=== PATIENT | male | born 1955 | race Caucasian/White ===

== ENCOUNTER → 2016-05-29 | Outpatient (CLI) | payer BC, OTHER ==
[~2016-05-29] VITALS: Ht 188 cm; Wt 102.5 kg
[~2016-05-29] MED LIST: AMITRIPTYLINE H10 M1 PO; ASPIR-LOW81 MG PO; GLUCOTROL5 MG PO; IMDUR 30 MG TAB30 M1 PO; METFORMIN HCL500 MG PO; NAPROSYN500 MG PO; NORCO 5-325 TA1 EACH PO; NORFLEX100 MG PO; OXYCODONE-ACET1 EAC2 PO; PLAVIX 75 MG TA75 M1 PO; SENOKOT-S1 TA1 PO
--- NOTE | ~2016-05-29 | HPC ---
[facility] [address] PAIN MANAGEMENT CONSULTATION Name: ALEIDA DANIELS Room #: REG [facility] Niecy#: [id number] Admission: 05/29/16 Attend Phys: Rose Blanca MD Discharge: Date of : 59 Report #: [id number] THIS REPORT FOR: //name// CC: Gaston Blanca DATE OF SERVICE: 05/29/2016 FOLLOWUP COMPLAINT: Here for the epidural steroid injection. FOLLOWUP HISTORY: The patient is a 61-year-old gentleman who has been seen in the pain clinic because of lumbar radiculopathy involving his right leg. The patient noted lifting a door at work. He noted a popping sensation and experienced pain and discomfort, which is radiated down into his right leg. His insurance company has precertified him for an injection. He has stopped his Plavix and has returned today for treatment. PHYSICAL EXAMINATION: Blood pressure is 98/49, pulse 74, respiratory rate 16, room air O2 saturation is 96%. The patient has not taken his Plavix for greater than 5 days. He continues to have pain and discomfort radiating down into the right leg. He did go to work today and is experiencing pain and discomfort. IMPRESSION: Lumbar radiculopathy involving the right leg in the L5-S1 distribution. RECOMMENDATIONS: We again reviewed the possible complications of the procedure with the patient. Risks and benefits were discussed. The patient elects to proceed. PROCEDURE NOTE: The patient was placed in the prone position. Fluoroscopy was used to identify the L5-S1 interspace. This area had been sterilely prepped with Betadine and infiltrated with 0.25% bupivacaine. Total of 80 mg Depo-Medrol, 40 mg triamcinolone and 2 mL of 0.25% bupivacaine was injected. The patient noticed his pain level decreased from 8 to 4 at the time of discharge. A script for oxycodone 10/325 one p.o. t.i.d. has been given. The patient has also been given a script for amitriptyline which he finds helpful and beneficial. He is taking a stool softener Senokot. The patient was taking Naprosyn 500 mg b.i.d. He will refrain from taking this medicine given that he is going to restart his Plavix. If his pain continues, we would recommend patient given of trial of Celebrex to notice efficacy. It has very little [address] [address] PAIN MANAGEMENT CONSULTATION Name: ALEIDA DANIELS SKYLAR Room #: REG [facility] Jen#: [id number] Admission: 05/29/16 Attend Phys: Rose Blanca MD Discharge: Date of : 59 Report #: [id number] effect on platelets. We would like to thank you for letting us participate in his care. We hope he continues to improve. <ELECTRONICALLY SIGNED> By: Rose Blanca MD 06/11/16 0914 [id number] 1822 Rose Blanca MD /eva
[2016-05-29 13:00] VITALS: BP 98/49
== END | disposition home or self-care (01) ==
LOC: PAIN 07:25
DX: M54.16 Radiculopathy, lumbar region (principal); F17.200 Nicotine dependence, unspecified, uncomplicated

== ENCOUNTER → 2016-07-10 | Outpatient (CLI) | payer BC, OTHER ==
[~2016-07-10] VITALS: Ht 188 cm; Wt 96.6 kg
[~2016-07-10] MED LIST changes: +ATORVASTATIN CA40 MG PO; +KLOR-CON 1010 MEQ PO; +LASIX 20 MG TAB20 MG PO; +LISINOPRIL2.5 MG PO; +MAGOX 400400 MG PO; +METOPROLOL TAR100 MG PO; +NEURONTIN 300300 M1 PO; +NITROLINGUAL12 GM TL; +OXYCONTIN10 M1 PO; +PACERONE 200 M200 M1 PO; +PERCOCET 10-321 EACH PO; +PERCOCET 5-3251 EACH PO; +PROAIR HFA8.5 GM PO; +PROTONIX40 M1 PO
--- NOTE | ~2016-07-10 | HPC ---
[facility] [place] [address] PAIN MANAGEMENT CONSULTATION Name: ALEIDA DANIELS [id number] Admission: 07/10/16 Attend Phys: Rose Blanca MD Discharge: Date of : 59 Report #: [id number] THIS REPORT FOR: //name// CC: Gaston Blanca DATE OF SERVICE: 07/10/2016 PRIMARY CARE PHYSICIAN: Gaston Vance M.D. FOLLOWUP COMPLAINT: "The pain is still really bad." FOLLOWUP HISTORY: The patient is a 61-year-old gentleman who has been seen in the pain clinic because of lumbar radiculopathy. He underwent an epidural steroid injection at the last visit. He continues to have pain, which he denotes is quite problematic. He rates it as a 10/10. He is unable to engage in activities of daily living. He continues to have pain, which radiates down the right leg into his toes. He is walking with an antalgic gait. He is having difficulty sleeping because of the pain. He is experiencing a constant burning, stabbing pain with numbness. PHYSICAL EXAMINATION: VITAL SIGNS: Blood pressure 136/76, pulse 66, respiratory rate 16 and room air O2 saturation is 100. MUSCULOSKELETAL: The patient has not fallen since we saw him last. He continues to be quite miserable because of the pain and discomfort. He denies any change in bowel or bladder function, but continues to have some discomfort. The patient states that his pain has been so intense that his blood pressure has been up. He has a stimulator in place. He states that it has gone off since we saw him last. It felt as though someone hit him between the back shoulder blades with a 40-pound murmur. He then had a second discharge of his stimulator. He feels that his pain is particularly the cause of his stimulator "going off." IMPRESSION AND PLAN: 1. Severe lumbar radiculopathy with pain radiating down into the right leg. 2. Coronary artery disease status post coronary artery bypass graft. 3. Defibrillator - defibrillator has activated since we saw him last. 4. Hypercholesterolemia. 5. Hypertension. 6. Diabetes. Ask that the patient monitor is blood sugars regarding the possible elevation secondary to steroid use. 7. We will proceed with an epidural steroid injection. If the patient continues to have pain and discomfort, he will then undergo an MRI. He has not had an MRI or visualization of his back. [address] [address] PAIN MANAGEMENT CONSULTATION Name: ALEIDA DANIELS Room #: REG [facility]#: [id number] Admission: 07/10/16 Attend Phys: Rose Blanca MD Discharge: Date of : 59 Report #: [id number] PROCEDURE NOTE: The patient was placed in the prone position. Fluoroscopy was used to identify the L5-S1 nerve root area. This area had been sterilely prepped with Betadine and infiltrated with 0.25% bupivacaine. Total of 80 mg Depo-Medrol, 40 mg triamcinolone and 2 mL of 0.5% bupivacaine was injected. The patient's pain decreased from 10 to 3 at the time of his discharge. He will follow up in the future as needed. We would like to thank you for letting us participate in his care. We hope he continues to improve. By: 1218 [id number] Rose Blanca MD /nt
[2016-07-10 08:03] VITALS: BP 136/76
== END | disposition home or self-care (01) ==
LOC: PAIN 07:02
DX: M54.16 Radiculopathy, lumbar region (principal); I25.10 Atherosclerotic heart disease of native coronary artery without angina pectoris; E78.00 Pure hypercholesterolemia, unspecified; I10 Essential (primary) hypertension; E11.9 Type 2 diabetes mellitus without complications; Z87.891 Personal history of nicotine dependence

== ENCOUNTER 2017-05-31 00:51 | Emergency (ER) | payer BC, OTHER ==
[~2017-05-31] VITALS: Ht 188 cm; Wt 95.3 kg
--- NOTE | ~2017-05-31 | EKG ---
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1955 Requested By: Christophe Gonsalves Order Number: [id number] MD: Heber Hernandes Measurements Intervals [place] Rate: 54 P: 17 NM: 170 QRS: -13 QRSD: 110 T: -87 QT: 451 QTc: 428 Interpretive Statements Sinus rhythm Inferior infarct, age indeterminate Nonspecific ST segment abnormality Compared to ECG 07/04/2016 12:47:16 Ventricular premature complex(es) no longer present Electronically Signed On 05-31-2017 8:48:54 [employer]NAGER by Heber Hernandes [email or web address] <ELECTRONICALLY SIGNED> By: Heber Hernandes MD, [facility] 05/31/17 0848 0130 0130 Heber Hernandes MD, [facility] /EPI
[~2017-05-31 00:51] MED LIST changes: +CLEOCIN HCL150 MG PO; +HYDROCODONE-AP1 EAC6 PO
[2017-05-31 00:59] VITALS: BP 104/71
[2017-05-31 01:35] LABS: ABSOLUTE NEUTROPHILS 8.7 thou/uL (1.4-8.2); BASOPHILS 0.6 % (0.0-2.0); EOSINOPHILS 1.4 % (0.0-3.0); HEMATOCRIT 41.6 % (42.0-52.0); HEMOGLOBIN 13.7 gm/dL (14.0-18.0); LYMPHOCYTES 15.3 % (24.0-44.0); MCH 30.1 pg (26.0-34.0); MCV 91.2 fL (80.0-100.0); MONOCYTES 6.8 % (1.0-8.0); PLATELET COUNT 174 thou/uL (150-400); POLYS 75.9 % (36.0-66.0); RBC 4.57 mil/uL (4.50-6.00); RDW 13.7 % (10.5-14.5); WBC 11.5 thou/uL (4.0-11.0)
[2017-05-31 01:38] LABS: ANION GAP 4 mmol/L (7-16); BUN 12 mg/dL (7-18); CALCIUM 8.6 mg/dL (8.5-10.1); CHLORIDE 107 mmol/L (98-107); CO2 30 mmol/L (21-32); CREATININE 0.8 mg/dL (0.7-1.3); GLUCOSE 98 mg/dL (74-106); POTASSIUM 3.7 mmol/L (3.5-5.1); SODIUM 141 mmol/L (136-145)
[2017-05-31 01:46] LABS: ALBUMIN 3.6 g/dL (3.4-5.0); MAGNESIUM 1.8 mg/dL (1.8-2.4); SGOT 13 U/L (15-37); SGPT 20 U/L (30-65); TOTAL BILIRUBIN 0.4 mg/dL (<0.1-1.0); TOTAL PROTEIN 6.9 g/dL (6.4-8.2); TROPONIN-I < 0.04 ng/mL (<0.06)
[2017-05-31 02:28] VITALS: BP 118/66
[2017-05-31 03:47] LABS: CHOLESTEROL 78 mg/dL (<200); HDL CHOLESTEROL 24 mg/dL (>40); LDL CHOLESTEROL 31 mg/dL (<100); TC:HDL 3.3 Ratio (Not establshd); TRIGLYCERIDE 116 mg/dL (<150); VLDL 23 mg/dL (<40)
[2017-05-31 03:49] LABS: SERUM ASSESSMENT Clear
[2017-05-31 10:58] VITALS: BP 127/68
== END 2017-05-31 13:36 | disposition home or self-care (01) ==
LOC: ER 00:51 → EROBS 02:25
PROVIDERS: Emergency Medicine; Nurse Practitioner Family
DX: R06.00 Dyspnea, unspecified (principal); R61 Generalized hyperhidrosis; R20.0 Anesthesia of skin; Z88.0 Allergy status to penicillin; Z87.891 Personal history of nicotine dependence

== ENCOUNTER → 2017-08-11 | Outpatient (CLI) | payer BC, OTHER | LOC: ULTRA 15:23 | DX: I65.22 Occlusion and stenosis of left carotid artery (principal); Z98.890 Other specified postprocedural states ==